=== PATIENT | male | born 1950 | race Caucasian/White ===

== ENCOUNTER 2018-06-05 00:11 | Observation (INO) | payer MEDICARE, BC ==
[2018-06-05] MEDS ORDERED: Ketorolac 30 MG/ML SDV IVPUSH ONE (00:29)
[2018-06-05] MEDS ORDERED: Sodium Chloride 0.9% 10 ML Syringe FLUSH PRN (00:30)
[2018-06-05] MEDS ORDERED: Magnesium Citrate Solution 296 ML Bottle PO ONE (01:01)
--- NOTE | 2018-06-05 01:01 | EDM.PDOC ---
ED HPI GENERAL MEDICAL PROBLEM - General Chief Complaint: Abdominal Pain Stated Complaint: ABDOMINAL PAIN Time Seen by Provider: 06/05/18 00:57 Source of Information: Reports: Patient History Limitations: Reports: No Limitations - History of Present Illness INITIAL COMMENTS - FREE TEXT/NARRATIVE: Candido is a 67-year-old male complaining of severe lower abdominal pain. He had open prostatectomy at the [facility] on Wednesday, and was driving home today, after being discharged - but started complaining of bladder spasms and severe abdominal pain,fairly suddenly. Oxycodone was not helping. He has no nausea , vomiting fever, chills or urinary symptoms.His urine is clear in the bag. 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 Medication(s) Lower abdominal pain Pain Score (Numeric/FACES): 10 - Related Data Allergies Allergy/AdvReac Type Severity Reaction Status Date / Time atorvastatin [From Lipitor] Allergy Muscle Verified 06/05/18 04:52 Aches pravastatin Allergy Muscle Verified 06/05/18 00:28 Aches Home Meds: Home Meds Acetaminophen/Diphenhydramine [Tylenol Pm Ex-Strength Caplet] 1,000 mg Q6H PRN 06/05/18 [History] Aspirin [Lo-Dose Aspirin EC] 81 mg PO DAILY 06/05/18 [History] Bacitracin [Bacitracin Ophth Oint] 1 appful .XX TID 06/05/18 [History] Budesonide [Pulmicort Flexhaler] 1 inhalation INH BID 06/05/18 [History] Cholecalciferol (Vitamin D3) [Vitamin D3] 400 units PO DAILY 06/05/18 [History] Losartan [Cozaar] 100 mg PO BEDTIME 06/05/18 [History] [place]-3 Acid Ethyl Esters 2 gm PO BEDTIME 06/05/18 [History] Oxybutynin 5 mg PO TID PRN 06/05/18 [History] Sennosides/Docusate Sodium [Senna-Docusate Sodium] 1 each PO BID 06/05/18 [ History] Sildenafil [Revatio] 20 mg PO DAILY PRN 06/05/18 [History] Simvastatin [Zocor] 10 mg PO BEDTIME 06/05/18 [History] amLODIPine Besylate [Norvasc] 10 mg PO BEDTIME 06/05/18 [History] oxyCODONE 5 mg PO Q4H PRN 06/05/18 [History] ED ROS GENERAL - Review of Systems Review Of Systems: ROS reveals no pertinent complaints other than HPI. ED EXAM, GI/ABD - Physical Exam Exam: See Below Exam Limited By: No Limitations General Appearance: Alert, WD/WN Throat/Mouth: Normal Inspection Head: Atraumatic Respiratory/Chest: No Respiratory Distress Cardiovascular: Normal Peripheral Pulses GI/Abdominal Exam: Normal Bowel Sounds, Distended, Rigid, Tender. No: Rebound (Male) Exam: No Hernia Course - Vital Signs Last Recorded V/S: Last Vital Signs Temp 98.6 F 06/05/18 04:00 Pulse 60 06/05/18 04:00 Resp 18 06/05/18 04:00 BP 131/74 06/05/18 04:00 Pulse Ox 93 L 06/05/18 04:00 - Orders/Labs/Meds Orders: Active Orders 24 hr Category Date Time Status Sodium Chloride 0.9% [Saline Flush] Med 06/05/18 00:30 Active 10 ml FLUSH ASDIRECTED PRN Peripheral IV Insertion Adult [OM.PC] Routine Oth 06/05/18 00:30 Ordered Medication Orders Amlodipine Besylate (Norvasc) 10 mg PO BEDTIME KIMBERLY Aspirin (Halfprin) 81 mg PO DAILY KIMBERLY Piperacillin Sod/Tazobactam (Sod 2.25 gm/ Sodium Chloride) 50 mls @ 100 mls/hr IV Q6H KIMBERLY Last Admin: 06/05/18 03:33 Dose: 100 mls/hr Sodium Chloride (Normal Saline) 1,000 mls @ 125 mls/hr IV ASDIRECTED KIMBERLY Last Admin: 06/05/18 02:36 Dose: 125 mls/hr Ketorolac Tromethamine (Toradol) 15 mg IM Q6H PRN PRN Reason: Pain (moderate 4-6) Morphine Sulfate (Morphine) 2 mg IVPUSH Q2H PRN PRN Reason: Pain (severe 7-10) Non-Formulary Medication (Bacitracin [Bacitracin Ophth Oint]) 1 appful .XX TID [facility] Non-Formulary Medication (Budesonide [Pulmicort Flexhaler]) 1 inhalation INH BID [facility] Non-Formulary Medication (Cholecalciferol (Vitamin D3) [Vitamin D3]) 400 units PO DAILY [facility] Ondansetron HCl (Zofran) 4 mg IV Q4H PRN PRN Reason: Nausea/Vomiting Oxybutynin Chloride (Oxybutynin) 5 mg PO TID PRN PRN Reason: Spasms Senna/Docusate Sodium (Senna Plus) 1 tab PO BID [facility] Sildenafil Citrate (Revatio) 20 mg PO DAILY PRN PRN Reason: Other Simvastatin (Zocor) 10 mg PO BEDTIME [facility] Sodium Chloride (Saline Flush) 10 ml FLUSH ASDIRECTED PRN PRN Reason: Keep Vein Open Last Admin: 06/05/18 00:40 Dose: 10 ml Labs: Laboratory Tests 06/05/18 06/05/18 06/05/18 Range/Units 00:40 00:40 00:40 WBC 12.5 H (4.5-12.0) X10-3/uL RBC 4.89 (4.30-5.75) x10(6)uL Hgb 13.8 (11.5-15.5) g/dL Hct 41.8 (30.0-51.3) % MCV 85.5 (80-96) fL MCH 28.1 (27.7-33.6) pg MCHC 32.9 (32.2-35.4) g/dL RDW 13.6 (11.5-15.5) % Plt Count 275 (125-369) X10(3)uL MPV 9.0 (7.4-10.4) fL Add Manual Diff Yes Neutrophils % (Manual) 90 H (46-82) % Lymphocytes % (Manual) 8 L (13-37) % Monocytes % (Manual) 2 L (4-12) % Sodium 137 (135-145) mmol/L Potassium 4.7 (3.5-5.3) mmol/L Chloride 102 (100-110) mmol/L Carbon Dioxide 25 (21-32) mmol/L BUN 39 H (7-18) mg/dL Creatinine 2.9 H* (0.70-1.30) mg/dL Est Cr Clr Drug Dosing 27.17 mL/min Estimated GFR (MDRD) 22 L (>60) BUN/Creatinine Ratio 13.4 (9-20) Glucose 113 (80-116) mg/dL Lactic Acid 0.8 (0.4-2.2) mmol/L Calcium 9.3 (8.6-10.2) mg/dL C-Reactive Protein (0.5-0.9) mg/dL Urine Color (YELLOW) Urine Appearance (CLEAR) Urine pH (5.0-6.5) Ur Specific [place] (1.010-1.025) Urine Protein (NEGATIVE) mg/dL Urine Glucose (UA) (NEGATIVE) mg/dL Urine Ketones (NEGATIVE) mg/dL Urine Occult Blood (NEGATIVE) Urine Nitrite (NEGATIVE) Urine Bilirubin (NEGATIVE) Urine Urobilinogen (NEGATIVE) mg/dL Ur Leukocyte Esterase (NEGATIVE) Urine RBC (0) Urine WBC (0) Ur Squamous Epith Cells (NS,R,O) Urine Bacteria (NS) 06/05/18 06/05/18 Range/Units 00:40 01:30 WBC (4.5-12.0) X10-3/uL RBC (4.30-5.75) x10(6)uL Hgb (11.5-15.5) g/dL Hct (30.0-51.3) % MCV (80-96) fL MCH (27.7-33.6) pg MCHC (32.2-35.4) g/dL RDW (11.5-15.5) % Plt Count (125-369) X10(3)uL MPV (7.4-10.4) fL Add Manual Diff Neutrophils % (Manual) (46-82) % Lymphocytes % (Manual) (13-37) % Monocytes % (Manual) (4-12) % Sodium (135-145) mmol/L Potassium (3.5-5.3) mmol/L Chloride (100-110) mmol/L Carbon Dioxide (21-32) mmol/L BUN (7-18) mg/dL Creatinine (0.70-1.30) mg/dL Est Cr Clr Drug Dosing mL/min Estimated GFR (MDRD) (>60) BUN/Creatinine Ratio (9-20) Glucose (80-116) mg/dL Lactic Acid (0.4-2.2) mmol/L Calcium (8.6-10.2) mg/dL C-Reactive Protein 9.1 H* (0.5-0.9) mg/dL Urine Color Yellow (YELLOW) Urine Appearance Slightly cloudy (CLEAR) Urine pH 6.0 (5.0-6.5) Ur Specific [place] 1.005 L (1.010-1.025) Urine Protein 30 H (NEGATIVE) mg/dL Urine Glucose (UA) Normal (NEGATIVE) mg/dL Urine Ketones 15 H (NEGATIVE) mg/dL Urine Occult Blood Large H (NEGATIVE) Urine Nitrite Negative (NEGATIVE) Urine Bilirubin Negative (NEGATIVE) Urine Urobilinogen Normal (NEGATIVE) mg/dL Ur Leukocyte Esterase Moderate H (NEGATIVE) Urine RBC 20-30 H (0) Urine WBC 5-10 (0) Ur Squamous Epith Cells Not seen (NS,R,O) Urine Bacteria Few H (NS) Meds: Medications Generic Name Dose Route Start Last Admin Trade Name Freq PRN Reason Stop Dose Admin Amlodipine Besylate 10 mg 06/05/18 21:00 Norvasc PO BEDTIME [facility] Aspirin 81 mg 06/05/18 09:00 Halfprin PO DAILY [facility] Piperacillin Sod/Tazobactam 50 mls @ 100 mls/hr 06/05/18 02:00 06/05/18 03:33 Sod 2.25 gm/ Sodium Chloride IV 100 mls/hr Q6H KIMBERLY Administration Sodium Chloride 1,000 mls @ 125 mls/hr 06/05/18 02:00 06/05/18 02:36 Normal Saline IV 125 mls/hr ASDIRECTED KIMBERLY Administration Ketorolac Tromethamine 15 mg 06/05/18 01:56 Toradol IM Q6H PRN Pain (moderate 4-6) Morphine Sulfate 2 mg 06/05/18 01:56 Morphine IVPUSH Q2H PRN Pain (severe 7-10) Non-Formulary Medication 1 appful 06/05/18 09:00 Bacitracin [Bacitracin Ophth Oint] .XX TID [facility] Non-Formulary Medication 1 inhalation 06/05/18 09:00 Budesonide [Pulmicort Flexhaler] INH BID [facility] Non-Formulary Medication 400 units 06/05/18 09:00 Cholecalciferol (Vitamin D3) [Vitamin D3] PO DAILY [facility] Ondansetron HCl 4 mg 06/05/18 01:56 Zofran IV Q4H PRN Nausea/Vomiting Oxybutynin Chloride 5 mg 06/05/18 02:05 Oxybutynin PO TID PRN Spasms Senna/Docusate Sodium 1 tab 06/05/18 09:00 Senna Plus PO BID KIMBERLY Sildenafil Citrate 20 mg 06/05/18 02:05 Revatio PO DAILY PRN Other Simvastatin 10 mg 06/05/18 21:00 Zocor PO BEDTIME KIMBERLY Sodium Chloride 10 ml 06/05/18 00:30 06/05/18 00:40 Saline Flush FLUSH 10 ml ASDIRECTED PRN Administration Keep Vein Open Discontinued Medications Generic Name Dose Route Start Last Admin Trade Name Luisq PRN Reason Stop Dose Admin Sodium Chloride 1,000 mls @ 999 mls/hr 06/05/18 01:19 06/05/18 01:21 Normal Saline IV 06/05/18 02:19 999 mls/hr .BOLUS ONE Administration Ketorolac Tromethamine 15 mg 06/05/18 00:29 06/05/18 00:41 Toradol IVPUSH 06/05/18 00:30 15 mg ONETIME ONE Administration Magnesium Citrate 296 ml 06/05/18 01:01 06/05/18 03:11 Citrate Of Magnesia PO 06/05/18 01:02 296 ml ONETIME ONE Administration Departure - Departure Time of Disposition: 02:08 Disposition: Refer to Observation Clinical Impression: Bladder spasms Abdominal pain Qualifiers: Abdominal location: lower abdomen, unspecified Qualified Code(s): R10.30 - Lower abdominal pain, unspecified - Discharge Information - Problem List & Annotations (1) Abdominal pain SNOMED Code(s): 98153534 Code(s): R10.9 - UNSPECIFIED ABDOMINAL PAIN Status: Acute Current Visit: No Qualifiers: Abdominal location: lower abdomen, unspecified Qualified Code(s): R10.30 - Lower abdominal pain, unspecified (2) Bladder spasms Status: Acute Current Visit: No (3) Constipation SNOMED Code(s): 37984047 Code(s): K59.00 - CONSTIPATION, UNSPECIFIED Status: Acute Current Visit: No Qualifiers: Constipation type: slow transit constipation Qualified Code(s): K59.01 - Slow transit constipation (4) UTI (urinary tract infection) SNOMED Code(s): 85689282 Code(s): N39.0 - URINARY TRACT INFECTION, SITE NOT SPECIFIED Status: Acute Current Visit: Yes Qualifiers: Urinary tract infection type: catheter-associated UTI (5) ULI (acute kidney injury) SNOMED Code(s): 90311202 Code(s): N17.9 - ACUTE KIDNEY FAILURE, UNSPECIFIED Status: Acute Current Visit: Yes - Problem List Review Problem List Initiated/Reviewed/Updated: Yes - My Orders Last 24 Hours: My Active Orders 06/05/18 00:30 Sodium Chloride 0.9% [Saline Flush] 10 ml FLUSH ASDIRECTED PRN Peripheral IV Insertion Adult [OM.PC] Routine - Assessment/Plan Last 24 Hours: My Active Orders 06/05/18 00:30 Sodium Chloride 0.9% [Saline Flush] 10 ml FLUSH ASDIRECTED PRN Peripheral IV Insertion Adult [OM.PC] Routine Plan: Admit patient, start empiric antibiotics and IV fluids. Also given magnesium citrate to see if this helps with the constipation. I'll order a CT of the abdomen and pelvis to be done in the morning..All labs will be repeated then,as well.
[2018-06-05] MEDS ORDERED: Sodium Chloride 0.9% 1,000 ML IV ONE (01:19)
[2018-06-05] MEDS ORDERED: Ketorolac 30 MG/ML SDV IM PRN (01:56)
[2018-06-05] MEDS ORDERED: Ondansetron 4 MG/2 ML SDV IV PRN (01:56)
[2018-06-05] MEDS ORDERED: Morphine 2 MG/ML Syringe IVPUSH PRN (01:56)
[2018-06-05] MEDS ORDERED: Sodium Chloride 0.9% 1,000 ML IV SCH (02:00)
[2018-06-05] MEDS ORDERED: Sildenafil 20 MG Tab PO PRN (02:05)
[2018-06-05] MEDS ORDERED: Oxybutynin 5 MG Tab PO PRN (02:05)
[2018-06-05] MEDS: Piperacillin/Tazobactam 2.25 GM in Sodium Chloride 0.9% 50 ML IV SCH ×2 (03:33→08:21)
[2018-06-05] MEDS ORDERED: BUDESONIDE INH SCH (09:00)
[2018-06-05] MEDS ORDERED: CHOLECALCIFEROL 400 UNIT PO SCH (09:00)
[2018-06-05] MEDS ORDERED: BACITRACIN SCH (09:00)
[2018-06-05] MEDS ORDERED: Aspirin 81 MG Tab.EC PO SCH (09:00)
--- NOTE | 2018-06-05 12:14 | DISCH ---
DISCHARGE DATE: 06/05/2018 HOSPITAL COURSE: Mr. Mcdonald was admitted last evening with acute bladder spasm. Was seen this morning comfortable. IV was discontinued. Diet was advanced, ambulating without difficulty. Abdomen wounds were healing well. Catheter was draining well. ASSESSMENT: 1. Suprapubic abdominal pain, likely bladder spasms. 2. Previous recent prostatectomy. PLAN: All looks well. Analgesics and medications on board. Has a followup visit with his provider in [place] and may visit as needed. SURGICAL PROCEDURES: None. CONSULTATIONS: None. /[id number] NISSA/ELISEO
[2018-06-05] MEDS ORDERED: amLODIPine 10 MG Tab PO SCH (21:00)
[2018-06-05] MEDS ORDERED: Simvastatin 10 MG Tab PO SCH (21:00)
--- NOTE | 2018-06-06 06:57 | HP ---
ADMISSION DATE: 06/05/2018 CHIEF COMPLAINT: Severe lower abdominal pain, cramps, discomfort, status post robotically-assisted suprapubic prostatectomy. HISTORY OF PRESENT ILLNESS: Candido Mcdonald is a 67-year-old, male, a resident of [place], [place], who was seen at [facility] by Dr. Villagran. He had undergone a robotically-assisted suprapubic prostatectomy for low-grade prostate cancer under the care of Dr. Familia Saeed, [facility]. All went well. Same-day surgery, no complaints, discharged in good condition. Travelled back home, had a little bit of round about trip through [facility]. As he wandered near [place], he began to have exquisite pain in his lower abdomen with spasms, discomfort, severe in nature. Prescription oxycodone sent upon discharge was not helping. No nausea, vomiting, fever, or chills. Urine was clear upon observation. He was seen at [facility], exam was stable. LABORATORY STUDIES: White count 12,500, hemoglobin 13.8, 90% neutrophils, 8% lymphocytes, and 2 monos. Electrolytes were satisfactory. Creatinine, known disease, 2.9; GFR 22; C-reactive protein 9.1. Urine which showed large occult blood, 20-30 under the microscope but yellow by observation. He was admitted with analgesics provided. ALLERGIES: Atorvastatin, pravastatin with muscle aches. No other medication, environmental, or latex allergies. PAST MEDICAL HISTORY: Significant for tonsillectomy as a child, left arm fracture as a child without conflict. He has been watching a slowly rising PSA over the last couple of years' duration. Biopsies x2. Surgical pathology from his surgery at [facility] unknown, "given observation of good surgical outcome." Chronic renal failure being followed closely, etiology not noted. 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 is 62, one daughter, one grandson. FAMILY HISTORY: Negative for early heart disease, diabetes mellitus, or inheritable cancers. REVIEW OF SYSTEMS: Morning of admission at 0900 hours, seen by myself, relatively pain free. Catheter draining without difficulty. PHYSICAL EXAMINATION: HEENT: Revealed normal conjunctiva, bright tympanic membranes. Clear nasal discharge. Mouth and oropharynx clear. Bright dentition. Tongue midline. Good gag reflex. NECK: Benign. Thyroid small. CHEST: Clear in all lung barclay. No adventitious sounds. HEART: Regular without ectopy or murmur. BREASTS: Normal male breasts. ABDOMEN: Benign surgical scars throughout his lower abdomen. Healing well without conflict. No discharge, redness, warmth. GENITALIA: Normal male genitalia. Catheter draining well. EXTREMITIES: Well perfused. SKIN: No lesions of consequence. NEUROLOGIC: The patient is oriented to time, place, and person. In good spirits. ASSESSMENT: Complicated lower abdominal pain, bladder spasms, catheter in place, robotically-assisted prostatectomy. PLAN: He looks well this morning. Catheter is draining well, pain is absent. Analgesics, intervention, and bladder spasm medicines are available for his review. Complementary care and well being. He will be discharged. DC IV. Ambulate. Discharge this morning. /[id number] NISSA/ELISEO
== END 2018-06-05 10:33 | disposition home or self-care (01) ==
LOC: FB.ED 00:11 → FB.MS 01:56
PROVIDERS: ADMIT Family Medicine; ATTEND Family Medicine
DX: N32.89 Other specified disorders of bladder (principal); N18.9 Chronic kidney disease, unspecified; Z90.79 Acquired absence of other genital organ(s); Z88.8 Allergy status to other drugs, medicaments and biological substances
CPT/HCPCS: 36415; 80048; 81001; 82550; 83605; 85025; 86140; 87040; 87086; 96361; 96374; 99285; A9270; J1885; J2543; J7030; J7050; 96365; 96375; G0378